=== PATIENT | female | born 1955 | race Caucasian/White ===

== ENCOUNTER → 2020-10-20 | Outpatient (CLI) | payer OTHER | LOC: LAB 15:31 | DX: R53.83 Other fatigue (principal); E53.9 Vitamin B deficiency, unspecified; E78.2 Mixed hyperlipidemia; E55.9 Vitamin D deficiency, unspecified; E53.8 Deficiency of other specified B group vitamins | CPT/HCPCS: 36415; 84443 ==

== ENCOUNTER 2022-01-05 16:36 | Inpatient (IN) | payer SELFPAY ==
[~2022-01-05] VITALS: Ht 170.2 cm; Wt 99.8 kg
[2022-01-06] MEDS ORDERED: PROTONIX40 MG PO (00:42)
[2022-01-06] MEDS ORDERED: LISINOPRIL30 MG PO (00:42)
[2022-01-06] MEDS ORDERED: FERROUS SULFAT325 M2 PO (00:43)
[2022-01-06] MEDS ORDERED: CINNAMON500 MG PO (00:46)
[2022-01-06] MEDS ORDERED: TUMERIC PO (00:48)
[2022-01-06] MEDS ORDERED: ASPIRIN EC81 MG PO (00:49)
[2022-01-06] MEDS ORDERED: LIVALO2 MG PO (00:49)
[2022-01-06] MEDS ORDERED: CEFDINIR300 MG PO (00:50)
[2022-01-06 05:48] LABS: BUN/CREATININE RATIO 12 (0-10)
[2022-01-06 13:11] LABS: HEMOGLOBIN 12.1 gm/dl (12.3-15.3); WHITE BLOOD COUNT 10.4 K/UL (4.5-11.0)
[2022-01-06 13:12] LABS: RED BLOOD COUNT 4.46 M/UL (4.00-5.10)
[2022-01-07 01:41] LABS: HEMOGLOBIN 11.5 gm/dl (12.3-15.3); RED BLOOD COUNT 4.25 M/UL (4.00-5.10); WHITE BLOOD COUNT 11.9 K/UL (4.5-11.0)
[2022-01-07 02:14] LABS: BUN/CREATININE RATIO 18 (0-10)
[2022-01-07] MEDS ORDERED: FUROSEMIDE40 MG PO (09:45)
[2022-01-07] MEDS ORDERED: COZAAR 50MG TAB50 MG PO (09:45)
[2022-01-07] MEDS ORDERED: DILTIAZEM 24HR180 M1 PO (09:45)
[2022-01-07] MEDS ORDERED: ELIQUIS 5 MG TAB5 MG PO (09:45)
== END 2022-01-07 10:33 | disposition home or self-care (01) | DRG 308 ==
LOC: ER1 16:36 → CDU 20:28 → M/S 20:28 → PROG CARE 01-06 10:16
PROVIDERS: Internal Medicine; ADMIT Internal Medicine
PROC: B24BZZZ Ultrasonography of Heart with Aorta (ICD-10-PCS; principal; 2022-01-06)
DX: I48.0 Paroxysmal atrial fibrillation (principal); I50.33 Acute on chronic diastolic (congestive) heart failure; I31.3 Pericardial effusion (noninflammatory); K21.9 Gastro-esophageal reflux disease without esophagitis; I11.0 Hypertensive heart disease with heart failure; Z20.822 Contact with and (suspected) exposure to COVID-19; I49.1 Atrial premature depolarization; E87.6 Hypokalemia; E66.9 Obesity, unspecified; I27.20 Pulmonary hypertension, unspecified; I05.0 Rheumatic mitral stenosis; E78.5 Hyperlipidemia, unspecified; D50.9 Iron deficiency anemia, unspecified; I16.0 Hypertensive urgency; Z79.01 Long term (current) use of anticoagulants; Z79.82 Long term (current) use of aspirin; Z90.710 Acquired absence of both cervix and uterus; Z88.8 Allergy status to other drugs, medicaments and biological substances; Z87.891 Personal history of nicotine dependence; Z98.891 History of uterine scar from previous surgery; Z82.49 Family history of ischemic heart disease and other diseases of the circulatory system; Z68.36 Body mass index [BMI] 36.0-36.9, adult
CPT/HCPCS: ECHO; 36415; 80048; 80053; 80061; 82533; 82550; 82553; 83036; 83735; 83880; 84100; 84132; 84439; 84443; 84484; 85025; 85610; 85730; 93005; 93306; 96374; 99285; G0378; J1160; J1650; J1940; U0002

== ENCOUNTER → 2022-01-05 | Outpatient (CLI) | payer OTHER ==
[~2022-01-05] MED LIST: ASPIRIN EC81 MG PO; CEFDINIR300 MG PO; CINNAMON500 MG PO; COZAAR 50MG TAB50 MG PO; DILTIAZEM 24HR180 M1 PO; ELIQUIS 5 MG TAB5 MG PO; FERROUS SULFAT325 M2 PO; FUROSEMIDE40 MG PO; LISINOPRIL30 MG PO; LIVALO2 MG PO; PROTONIX40 MG PO; TUMERIC PO
[2022-01-05 14:36] LABS: RED BLOOD COUNT 4.03 M/UL (4.00-5.10); WHITE BLOOD COUNT 10.6 K/UL (4.5-11.0)
[2022-01-05 15:00] LABS: BUN/CREATININE RATIO 11 (0-10)
[2022-01-08 18:11] LABS: CHOLESTEROL, TOTAL 131 mg/dL (100-199); HDL SIZE 9.7 nm (>=9.2); HDL-C 49 mg/dL (>39); HDL-P (TOTAL) 32.2 umol/L (>=30.5); LARGE HDL-P 7.5 umol/L (>=4.8); LARGE VLDL-P 3.1 nmol/L (<=2.7); LDL SIZE 19.9 nm (>20.5); LDL SIZE 19.9 nm (>=20.8); LDL-C 60 mg/dL (0-99); LDL-P 834 nmol/L (<1000); LP-IR SCORE 42 (<=45); SMALL LDL-P 643 nmol/L (<=527); TRIGLYCERIDES 123 mg/dL (0-149); VLDL SIZE 46.5 nm (<=46.6)
== END ==
LOC: LAB 13:42
PROVIDERS: Emergency Medicine
DX: R06.02 Shortness of breath (principal); I49.9 Cardiac arrhythmia, unspecified; R60.0 Localized edema; I10 Essential (primary) hypertension; Z88.1 Allergy status to other antibiotic agents; J90 Pleural effusion, not elsewhere classified; I99.8 Other disorder of circulatory system; R09.89 Other specified symptoms and signs involving the circulatory and respiratory systems; Z20.828 Contact with and (suspected) exposure to other viral communicable diseases
CPT/HCPCS: 36415; 71046; 80053; 80061; 83704; 83880; 84443; 84550; 85025; 85379; Q9967

== ENCOUNTER → 2022-02-06 | Outpatient (CLI) | payer OTHER | LOC: HEART 5 15:30 | DX: I47.1 Supraventricular tachycardia (principal); I48.91 Unspecified atrial fibrillation ==